=== PATIENT | male | born 1980 | race Caucasian/White ===

== ENCOUNTER 2019-02-26 03:06 | Observation (INO) | payer SELFPAY ==
[2019-02-26] MEDS ORDERED: Morphine 4 MG/ML VIAL ONE ×2 (03:34→04:49)
[2019-02-26 03:39] LABS: #Eosinphils 0.1 thou/uL (0.0-0.7); #Lymphocytes 1.4 thou/uL (1.20-3.40); #Monocytes 0.8 thou/uL (0.11-0.59); %Eosinophils 0.3 % (0.0-10.0); %Lymphocytes 7.9 % (21.0-51.0); %Monocytes 4.8 % (0.0-10.0); Hemoglobin 15.6 g/dL (14.0-18.0); Mean Corpuscular Hemoglobin 34.2 pg (27.0-31.0); Mean Corpuscular Volume 95.1 fL (78.0-98.0); Mean Platelet Volume 8.8 fL (7.4-10.4); Platelet Count 257 thou/uL (130-400); RBC Distribution Width 11.8 % (11.5-14.5); Red Blood Cell (RBC) Count 4.56 mill/uL (4.70-6.10); White Blood Cell (WBC) Count 17.3 thou/uL (4.8-10.8)
[2019-02-26] MEDS ORDERED: Ondansetron PF 4 MG/2 ML Vial IVP PRN (06:08)
[2019-02-26] MEDS ORDERED: Ondansetron ODT 4 MG TAB SL PRN (06:08)
[2019-02-26] MEDS ORDERED: Morphine 2 MG/ML SYRINGE SLOW IVP PRN (06:09)
[2019-02-26] MEDS ORDERED: Dextrose 5 % And 0.9 % NaCl 1,000 ML IV SCH ×2 (06:15→09:00)
--- NOTE | 2019-02-26 07:48 | RAD ---
Exam: Single view of the pelvis HISTORY: An apple is placed in his rectum. COMPARISON: None FINDINGS: A single view the pelvis shows no evidence of acute fracture or dislocation. No degenerativ e changes seen in either hip. No radiopaque foreign body is seen. The patient still is displaced superiorly by a relative area of lucency in the rectum. IMPRESSION: No evidence of acute osseous abnormality.
--- NOTE | 2019-02-26 09:59 | CT ---
PRELIMINARY REPORT/[facility]/EMERGENCY AFTER HOURS PROCEDURE ABDOMINAL AND PELVIC CT WITHOUT IV CONTRAST Technique: Multiple non-IV contrast enhanced axial CT images were obtained through the abdomen and pe lvis. Multiplanar reformatted images were provided. History: Foreign body. Apple situated in rectum Comparisons: None Findings: The liver, spleen, gallbladder, pancreas and adrenals are unremarkable. No radiodense urinary calculi are seen. There is no hydronephrosis or hydroureter. No acute appeari ng perinephric stranding noted. Reported apple is situated within the lower rectum. The rectum is distended to a diameter of approxi mately 7.7 cm. Subtle adjacent perirectal fat stranding noted. There is no free fluid or free air. The bladder is unremarkable. Impression: Foreign body in the form of an apple is situated within the lower rectum. No evidence of rectal perfo ration. There is subtle perirectal fat stranding. ELECTRONICALLY SIGNED BY: Amol Sanches MD Feb 26, 2019 5:09:59 AM [employer] WORK[employer] FINAL REPORT CTA ABDOMEN AND PELVIS WITHOUT CONTRAST: FINDINGS/IMPRESSION: I agree with the findings and impression given in the preliminary report per [facility] physici an. There is an apple in the rectum. No other acute intraabdominal/pelvic abnormality is seen. POS: [facility]
[2019-02-26] MEDS ORDERED: cefOXitin 2 GM in Sodium Chloride 0.9% 100 ML IVPB SCH (10:15)
[2019-02-26] MEDS ORDERED: PROPOFOL 200 MG/20 ML VIAL ONE (11:10)
[2019-02-26] MEDS ORDERED: Ondansetron PF 4 MG/2 ML Vial ONE (11:10)
[2019-02-26] MEDS ORDERED: Dexamethasone 20 MG/5 ML VIAL ONE (11:10)
[2019-02-26] MEDS ORDERED: Lidocaine 1% PF 5 ML VIAL ONE (11:10)
[2019-02-26] MEDS ORDERED: Ketorolac Tromethamine 30 MG/ML VIAL ONE (11:10)
[2019-02-26 11:44] LABS: Anion Gap 11 mmol/L (10-20); BUN (Urea Nitrogen) 11 mg/dL (8.9-20.6); Calc. Creatinine Clearance 0 mL/min (70-130); Calcium 8.9 mg/dL (7.8-10.44); Carbon Dioxide 26 mmol/L (22-29); Chloride 108 mmol/L (98-107); Estimated GFR-MDRD Greater than 90; Glucose 83 mg/dL (70-105); Potassium 3.8 mmol/L (3.5-5.1); Sodium 141 mmol/L (136-145)
[2019-02-26 12:52] VITALS: BP 107/71; TEMP 98.1
--- NOTE | 2019-02-26 13:03 | HP ---
HISTORY OF PRESENT ILLNESS: Richard Arzate is a 38-year-old male who states he was curious and placed a medium-sized apple in his anus. He presented to the ER, and they could not remove it. He was hospitalized and plans to remove that under anesthesia today. ALLERGIES: PENICILLIN. SOCIAL HISTORY: Tobacco, one pack per day. Alcohol, occasionally. The patient works in construction. His fiancee accompanies him during this interview and discussion. PAST SURGICAL HISTORY: Noncontributory. PAST MEDICAL HISTORY: Noncontributory. PHYSICAL EXAMINATION: VITAL SIGNS: Temperature 98.5, pulse 99, and blood pressure 105/74. LUNGS: Clear to auscultation. CARDIAC: Regular rate and rhythm without murmur or gallop. ABDOMEN: Soft and nontender. No mass. EXTREMITIES: Unremarkable. RECTAL: Deferred. LABORATORY DATA: White count 17, hemoglobin 15. Basic metabolic profile normal. ASSESSMENT: Rectal foreign body. PLAN: Extraction under anesthesia. He understands risks and benefits and consents, open procedure as indicated. Job ID: [id number]
[2019-02-26] MEDS ORDERED: ceFOXitin 2 GM/50 ML Duplex BAG ONE (13:33)
[2019-02-26] MEDS ORDERED: Acetaminophen 500 MG TAB PO PRN (13:59)
[2019-02-26] MEDS ORDERED: Ibuprofen 600 MG TAB PO PRN (13:59)
[2019-02-26] MEDS ORDERED: Fentanyl 100 MCG/2 ML VIAL ONE (14:13)
--- NOTE | 2019-02-26 14:50 | OP ---
DATE OF PROCEDURE: 02/26/2019 PREOPERATIVE DIAGNOSIS: Rectal foreign body apple. POSTOPERATIVE DIAGNOSIS: Rectal foreign body apple. PROCEDURE PERFORMED: Exam under anesthesia, removal of rectal foreign body apple. ANESTHESIA: General. DESCRIPTION OF PROCEDURE: The patient was taken to the operating room, where in the dorsal lithotomy position, a rectal exam performed appreciating the apple grasping with Pradeep, removing it in fragments, removing most all the apple, palpated. No fragments were appreciated on digital of the rest. Any retained can be passed spontaneously. The patient tolerated the procedure well. Job ID: [id number]
--- NOTE | 2019-02-26 15:01 | DIS ---
DATE OF ADMISSION: 02/26/2019 DATE OF DISCHARGE: 02/26/2019 DISCHARGE DIAGNOSIS: Rectal foreign body apple. DISCHARGE FOLLOWUP: P.r.n. DIET AND ACTIVITY: As tolerated. No restrictions. 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 He is brought in, admitted overnight, given IV fluids, taken to the operating room under anesthesia, apple removed. He was discharged home. Followup p.r.n. Job ID: [id number]
[2019-02-26 16:08] VITALS: BMI 27.5
[2019-02-27] MEDS ORDERED: FLU VACC QS2019-20(6MOS UP)/PF 60 MCG/0.5 ML SYRINGE IM ONE (09:00)
== END 2019-02-26 18:00 | disposition home or self-care (01) ==
LOC: ERS 03:06 → EEVIPCON 03:06 → SURG A 05:28
PROVIDERS: ADMIT Specialist; ATTEND Specialist
PROC: 0DCP7ZZ Extirpation of Matter from Rectum, Via Natural or Artificial Opening (ICD-10-PCS; principal; 2019-02-26)
DX: T18.5XXA Foreign body in anus and rectum, initial encounter (principal); F17.210 Nicotine dependence, cigarettes, uncomplicated; Z88.0 Allergy status to penicillin; X58.XXXA Exposure to other specified factors, initial encounter
CPT/HCPCS: 36415; 72170; 74176; 80048; 85025; 96361; 96374; 96376; G0378; J0694; J1100; J1885; J2001; J2270; J2405; J2704; J3010

== ENCOUNTER 2022-02-21 13:05 | Emergency (ER) | payer SELFPAY ==
[2022-02-21] MEDS ORDERED: Proparacaine 0.5% Opth 15 ML BOT ONE (13:21)
[2022-02-21] MEDS ORDERED: Fluorescein Opthalmic Strip ONE (13:21)
== END 2022-02-21 14:17 | disposition home or self-care (01) ==
LOC: ERS 13:05
DX: H16.001 Unspecified corneal ulcer, right eye (principal); F17.210 Nicotine dependence, cigarettes, uncomplicated
CPT/HCPCS: 99283